=== PATIENT | female | born 1925 | race Caucasian/White ===

== ENCOUNTER → 2016-07-04 | Outpatient (REF) | payer MEDICARE, MEDICAID ==
[~2016-07-04] MED LIST: BUSP10TA PO; CLAR10CA3 PO; FLAG500T PO; FLON0.054; HYDR10T PO; LASI40TA PO; LEVO25TA5 PO; LIPI20TA PO; LISI-538 PO; LISI10TA4 PO; METF500T PO; MILKSUS PO; MYLI40DR PO; OMEP20CA3 PO; PAME10CA PO; PATA0.2S OS; TYLE650T25 PO; VITA100041 PO; XARE10TA PO; ZANT1TAB PO; ZEST1TAB7 PO
[2016-07-04 09:47] LABS: MICROSCOPIC INDICATED? MAN YES (NO)
[2016-07-04 09:53] LABS: WBC, URINE NONE SEEN /hpf (0-3)
[2016-07-04 09:54] LABS: BACTERIA, URINE SMALL AMOUNT; HYALINE CAST, URINE 0-1 /lpf (0-1); MICROSCOPIC EXAM PERFORMED; RBC, URINE NONE SEEN /hpf (0-3); SQUAMOUS EPITHELIAL CELL URINE SMALL AMOUNT /hpf (SMALL AMT)
== END ==
PROVIDERS: ATTEND Nurse Practitioner Family
DX: R30.0 Dysuria (principal)

== ENCOUNTER 2016-07-19 21:34 | Emergency (ER) | payer MEDICARE, MEDICAID ==
--- NOTE | 2016-07-19 22:50 | REPUSA ---
CT of the cervical spine Clinical history: Pain. Trauma. Technique: Multiple axial CT images were obtained through the cervical spine without administration o f contrast. Coronal and sagittal 3-D reconstructed images were also obtained. Comparison: 08/21/2015. Findings: The cervical vertebral bodies are in satisfactory positioning and alignment. No fractures or dislocat ions are demonstrated. The odontoid process is intact, with surrounding osteophytic spurring is noted , but stable. Mild degenerative disc disease is appreciated at C6/C7. Intervertebral disc spaces are otherwise well-maintained. Severe diffuse facet arthropathy with sclerosis and overhanging osteophyte s are seen throughout the cervical spine. There is no evidence of facet subluxation. The neural rené en appear grossly patent. The cervical cranial junction is intact. The cervical spinal canal demonstr ates normal caliber and contour without evidence of spinal stenosis. The surrounding soft tissues are within normal limits. Impression: 1. No acute fracture or osseous abnormality. 2. Mild degenerative disc disease at C6/C7. 3. Extensive bilateral facet arthropathy without evidence of subluxation. These findings are grossly stable.
--- NOTE | 2016-07-19 22:50 | REPUSA ---
CT of the head Clinical history: Headache. Trauma. Protocol: Multiple axial CT images obtained with 5 mm slice thickness were obtained through the head without administration of contrast. Findings: The ventricles and sulci are symmetric but prominent in size bilaterally. There are periven tricular areas of low attenuation throughout the deep white matter. There is no evidence of acute hem orrhage or infarct. There is no midline shift, mass effect, or extra-axial fluid collection. The osse ous structures are unremarkable. The visualized paranasal sinuses and mastoid air cells are clear. Impression: No acute hemorrhage or infarct. Findings are consistent with mild age-related atrophy and chronic small vessel ischemic disease.
--- NOTE | 2016-07-19 23:21 | EDDOCDS ---
Nurse's Notes [facility] Name: Luciana Sandhu Age: 89 yrs Sex: Female : 1925 Arrival Date: 07/19/2016 Time: 21:34 Bed 13 Private MD: Diagnosis: Fall from or off toilet Presentation: 07/19 22:40 Presenting complaint: EMS states: that the pt lives at [facility] and fell tonight ms18 in her bathroom from standing onto her bottom. [facility] states that the pt is more confused than normal. EMS checked BGL, 170 and noted a high BP. Pt denies any pain at this time. Adult Sepsis Screening: The patient does not have new or worsening altered mentation. Patient's respiratory rate is less than 22. Systolic blood pressure is greater than 100. Patient has a qSOFA score of 0- Negative Sepsis Screen. Suicide/Homicide risk assessment- the patient denies having any suicidal and/or homicidal ideations and does not present with any other emotional, behavioral or mental health complaints. Status: Patient is not a welfare service aide or dependent. Transition of care: patient was received from [facility]. Care prior to arrival: See EMS report. Glucose check. 170. 22:40 Acuity: JI Level 3 ms18 22:40 Method Of Arrival: Ambulance ms18 Triage Assessment: 22:52 General: Appears in no apparent distress, comfortable, Behavior is appropriate for age, ms18 cooperative. Pain: Denies pain. Neurological: Level of Consciousness is awake, alert, obeys commands. Respiratory: No deficits noted. Derm: Skin is pink, warm & dry. Musculoskeletal: cervical spine is non-tender. Circulation, motion, and sensation intact Capillary refill < 3 seconds Range of motion intact in all extremities. No deformity noted Swelling absent. Historical: - Allergies: PENICILLINS; - Home Meds: 1. Synthroid 75 mcg Oral tab 1 tab once daily 2. nortriptyline 10 mg Oral cap 1 caps daily 3. Remeron 15 mg Oral tab 1 tab once daily 4. Xarelto 15 mg oral tab 1 tab daily 5. Januvia 100 mg oral tab 1 tab once daily 6. metformin 500 mg Oral Tb24 2 tabs 2 times per day 7. Refresh Tears 0.5 % ophthalmic drop daily 8. Milk of Magnesia 400 mg/5 mL Oral susp 30 mL daily 9. Patanol 0.1 % Opht drop 1 drop 2 times per day both eyes 10. Lipitor 20 mg Oral tab 1 tab once daily 11. Vitamin D3 1,000 unit oral tab daily 12. Tylenol Extra Strength 650mg oral 1 cap as needed 13. omeprazole 20 mg Oral cpDR 1 cap once daily 14. 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 No barriers to communication noted, The patient speaks fluent Nigerien. - Family history: Not pertinent. - : The pt / caregiver states he / she is on anticoagulants: Xarelto Home medication list is obtained from [employer] import data, the facility [facility]. - Exposure Risk Screening:: None identified. Screenin:55 Screening information is obtained from the patient. Fall risk: At risk due to age, ms18 prior history of falls. Assistance ADL's: Requires assistance with. Abuse/DV Screen: The patient / caregiver reports he/she is: not in a situation that causes fear, pain or injury. Nutritional screening: No deficits noted. Advance Directives: There is an active DNR order and the pt has a copy here at this time. home support is adequate. Assessment: 22:55 General: Appears in no apparent distress, comfortable, Behavior is appropriate for age, ms18 cooperative. Pain: Denies pain. Neurological: Level of Consciousness is awake, alert, obeys commands, Moves all extremities. Speech is normal. Respiratory: Airway is patent Respiratory effort is even, unlabored. Derm: Skin is pink, warm & dry. Vital Signs: 21:59 Pulse 80 MON; Pulse Ox 98% ; ms18 22:00 Pulse 78 MON; Pulse Ox 97% ; ms18 22:04 BP 184 / 81; Pulse 80; Resp 20; Temp 96.6(O); Pulse Ox 98% on R/A; Pain 6/10; kb5 22:12 Pulse 80 MON; ms18 22:12 BP 174 / 77 (auto/); ms18 22:27 BP 158 / 71 (auto/); ms18 22:42 BP 192 / 79 (auto/); ms18 22:42 Pulse 76 MON; Pulse Ox 97% ; ms18 22:57 BP 174 / 74 (auto/); Pulse 75; Resp 18; Temp 98; Pulse Ox 98% ; ms18 Vitals: 22:52 Log In Time N/A - ambulance arrival. ms18 ED Course: 21:37 Patient visited by Solange Crum, Art Psychotherapist. ml3 21:37 Patient moved to Waiting ml3 22:03 Olive Hampton RN is Primary Nurse. ml3 22:03 Patient moved to 13 ml3 22:05 Patient visited by Guille Zuluaga PCA. kb5 22:05 Jovanny Lundy DO is Attending Physician. cs11 22:05 Patient visited by Jovanny Lundy DO. cs11 22:38 Patient visited by Olive Hampton RN. ms18 22:46 Triage Initiated ms18 22:55 The patient / caregiver is instructed regarding the plan of care and ED course. Patient ms18 has correct armband on for positive identification. Placed in gown. Bed in low position. Call light in reach. Side rails up X2. store protection specialist on. Pulse ox on. NIBP on. Property sent home with patient. :Personal belongings accompany Pt. 22:55 No IV's were initiated during this patient's visit. No procedures done that require ms18 assistance. Order Results: There are currently no results for this order. Outcome: 22:55 Discharge Assessment: patient administered narcotics - no. The following High Risk ms18 Discharge criteria are identified: None. Condition: good Condition: stable. CT Study completed. 22:57 Discharge ordered by Provider. cs11 23:00 Discharged to prison. Report called to charlette Pratt Yakum Rn. ms18 Discharge instructions given to prison, Instructed on discharge instructions, follow up and referral plans. 23:19 Patient left the ED. ms18 Signatures: Solange Crum, Art Psychotherapist Unit 3 Guille Zuluaga PCA SUPERVISOR RIDE ASSEMBLY kb5 Jovanny Lundy DO DO cs11 Olive Hampton RN RN ms18 Corrections: (The following items were deleted from the chart) 23:05 22:57 BP 174 / 74 Auto; Pulse 75bpm; Resp 18bpm; Pulse Ox 98%; ms18 ms18 MTDD
--- NOTE | 2016-07-19 23:21 | EDDOCDS ---
Physician Documentation [facility] Name: Luciana Sandhu Age: 89 yrs Sex: Female : 1925 Arrival Date: 07/19/2016 Time: 21:34 Bed 13 Private MD: Disposition: 07/19/16 22:57 Discharged to Home/Self Care. Impression: Fall from or off toilet. - Condition is Stable. - Medication Reconciliation, Local Pharmacy Hours form. - Follow up: Private Physician; When: Call to arrange an appointment; Reason: Recheck today's complaints. - Problem is new. - Symptoms are unchanged. Historical: - Allergies: PENICILLINS; - Home Meds: 1. Synthroid 75 mcg Oral tab 1 tab once daily 2. nortriptyline 10 mg Oral cap 1 caps daily 3. Remeron 15 mg Oral tab 1 tab once daily 4. Xarelto 15 mg oral tab 1 tab daily 5. Januvia 100 mg oral tab 1 tab once daily 6. metformin 500 mg Oral Tb24 2 tabs 2 times per day 7. Refresh Tears 0.5 % ophthalmic drop daily 8. Milk of Magnesia 400 mg/5 mL Oral susp 30 mL daily 9. Patanol 0.1 % Opht drop 1 drop 2 times per day both eyes 10. Lipitor 20 mg Oral tab 1 tab once daily 11. Vitamin D3 1,000 unit oral tab daily 12. Tylenol Extra Strength 650mg oral 1 cap as needed 13. omeprazole 20 mg Oral cpDR 1 cap once daily 14. 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 No barriers to communication noted, The patient speaks fluent Hong Konger. - Family history: Not pertinent. - : The pt / caregiver states he / she is on anticoagulants: Xarelto Home medication list is obtained from [employer] import data, the facility [facility]. - Exposure Risk Screening:: None identified. Vital Signs: 07/19 21:59 Pulse 80 MON; Pulse Ox 98% ; ms18 22:00 Pulse 78 MON; Pulse Ox 97% ; ms18 22:04 BP 184 / 81; Pulse 80; Resp 20; Temp 96.6(O); Pulse Ox 98% on R/A; Pain 6/10; kb5 22:12 Pulse 80 MON; ms18 22:12 BP 174 / 77 (auto/); ms18 22:27 BP 158 / 71 (auto/); ms18 22:42 BP 192 / 79 (auto/); ms18 22:42 Pulse 76 MON; Pulse Ox 97% ; ms18 22:57 BP 174 / 74 (auto/); Pulse 75; Resp 18; Temp 98; Pulse Ox 98% ; ms18 MDM: 22:13 CT Head Without Contrast Ordered. EDMS 22:14 CT Spine,Cervical W/o Contrast Ordered. EDMS Signatures: Dispatcher [employer] EDMS Jovanny Lundy DO DO cs11 Olive Hampton,RN RN ms18 MTDD
--- NOTE | 2016-07-22 00:21 | EDDOCDS ---
Nurse's Notes [facility] Name: Luciana Sandhu Age: 89 yrs Sex: Female : 1925 Arrival Date: 07/19/2016 Time: 21:34 Bed 13 Private MD: Diagnosis: Fall from or off toilet Presentation: 07/19 22:40 Presenting complaint: EMS states: that the pt lives at [facility] and fell tonight ms18 in her bathroom from standing onto her bottom. [facility] states that the pt is more confused than normal. EMS checked BGL, 170 and noted a high BP. Pt denies any pain at this time. Adult Sepsis Screening: The patient does not have new or worsening altered mentation. Patient's respiratory rate is less than 22. Systolic blood pressure is greater than 100. Patient has a qSOFA score of 0- Negative Sepsis Screen. Suicide/Homicide risk assessment- the patient denies having any suicidal and/or homicidal ideations and does not present with any other emotional, behavioral or mental health complaints. Status: Patient is not a flight line service attendant or dependent. Transition of care: patient was received from [facility]. Care prior to arrival: See EMS report. Glucose check. 170. 22:40 Acuity: JI Level 3 ms18 22:40 Method Of Arrival: Ambulance ms18 Triage Assessment: 22:52 General: Appears in no apparent distress, comfortable, Behavior is appropriate for age, ms18 cooperative. Pain: Denies pain. Neurological: Level of Consciousness is awake, alert, obeys commands. Respiratory: No deficits noted. Derm: Skin is pink, warm & dry. Musculoskeletal: cervical spine is non-tender. Circulation, motion, and sensation intact Capillary refill < 3 seconds Range of motion intact in all extremities. No deformity noted Swelling absent. Historical: - Allergies: PENICILLINS; - Home Meds: 1. Synthroid 75 mcg Oral tab 1 tab once daily 2. nortriptyline 10 mg Oral cap 1 caps daily 3. Remeron 15 mg Oral tab 1 tab once daily 4. Xarelto 15 mg oral tab 1 tab daily 5. Januvia 100 mg oral tab 1 tab once daily 6. metformin 500 mg Oral Tb24 2 tabs 2 times per day 7. Refresh Tears 0.5 % ophthalmic drop daily 8. Milk of Magnesia 400 mg/5 mL Oral susp 30 mL daily 9. Patanol 0.1 % Opht drop 1 drop 2 times per day both eyes 10. Lipitor 20 mg Oral tab 1 tab once daily 11. Vitamin D3 1,000 unit oral tab daily 12. Tylenol Extra Strength 650mg oral 1 cap as needed 13. omeprazole 20 mg Oral cpDR 1 cap once daily 14. 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 No barriers to communication noted, The patient speaks fluent [place]. - Family history: Not pertinent. - : The pt / caregiver states he / she is on anticoagulants: Xarelto Home medication list is obtained from [employer] import data, the facility [facility]. - Exposure Risk Screening:: None identified. Screenin:55 Screening information is obtained from the patient. Fall risk: At risk due to age, ms18 prior history of falls. Assistance ADL's: Requires assistance with. Abuse/DV Screen: The patient / caregiver reports he/she is: not in a situation that causes fear, pain or injury. Nutritional screening: No deficits noted. Advance Directives: There is an active DNR order and the pt has a copy here at this time. home support is adequate. Assessment: 22:55 General: Appears in no apparent distress, comfortable, Behavior is appropriate for age, ms18 cooperative. Pain: Denies pain. Neurological: Level of Consciousness is awake, alert, obeys commands, Moves all extremities. Speech is normal. Respiratory: Airway is patent Respiratory effort is even, unlabored. Derm: Skin is pink, warm & dry. Vital Signs: 21:59 Pulse 80 MON; Pulse Ox 98% ; ms18 22:00 Pulse 78 MON; Pulse Ox 97% ; ms18 22:04 BP 184 / 81; Pulse 80; Resp 20; Temp 96.6(O); Pulse Ox 98% on R/A; Pain 6/10; kb5 22:12 Pulse 80 MON; ms18 22:12 BP 174 / 77 (auto/); ms18 22:27 BP 158 / 71 (auto/); ms18 22:42 BP 192 / 79 (auto/); ms18 22:42 Pulse 76 MON; Pulse Ox 97% ; ms18 22:57 BP 174 / 74 (auto/); Pulse 75; Resp 18; Temp 98; Pulse Ox 98% ; ms18 Vitals: 22:52 Log In Time N/A - ambulance arrival. ms18 ED Course: 21:37 Patient visited by Solange Crum, Blindstitch Machine Operator. ml3 21:37 Patient moved to Waiting ml3 22:03 Olive Hampton RN is Primary Nurse. ml3 22:03 Patient moved to 13 ml3 22:05 Patient visited by Guille Zuluaga PCA. kb5 22:05 Jovanny Lundy DO is Attending Physician. cs11 22:05 Patient visited by Jovanny Lundy DO. cs11 22:38 Patient visited by Olive Hampton RN. ms18 22:46 Triage Initiated ms18 22:55 The patient / caregiver is instructed regarding the plan of care and ED course. Patient ms18 has correct armband on for positive identification. Placed in gown. Bed in low position. Call light in reach. Side rails up X2. cardiac monitor technician on. Pulse ox on. NIBP on. Property sent home with patient. :Personal belongings accompany Pt. 22:55 No IV's were initiated during this patient's visit. No procedures done that require ms18 assistance. 23:25 Primary Nurse role handed off by Olive Hampton RN ms18 23:41 CT Head Without Contrast Returned. EDMS 23:41 CT Spine,Cervical W/o Contrast Returned. EDMS 07/20 10:59 T-Sheet-- Draft Copy was scanned into [employer] and attached to record. gb 10:59 PCR was scanned into [employer] and attached to record. gb 15:13 PCR was scanned into [employer] and attached to record. gb 07/21 14:11 Radiology Report was scanned into [employer] and attached to record. gb Order Results: Radiology Order: CT Head Without Contrast Test: CT Head Without Contrast REASON FOR EXAMINATION: Trauma; ; CT of the head; Clinical history: Headache. Trauma.; Protocol: Multiple axial CT images obtained with 5 mm slice thickness were obtained through the head; without administration of contrast.; Findings: The ventricles and sulci are symmetric but prominent in size bilaterally. There are periven; tricular areas of low attenuation throughout the deep white matter. There is no evidence of acute hem; orrhage or infarct. There is no midline shift, mass effect, or extra-axial fluid collection. The osse; ous structures are unremarkable. The visualized paranasal sinuses and mastoid air cells are clear.; Impression: No acute hemorrhage or infarct. Findings are consistent with mild age-related atrophy and; chronic small vessel ischemic disease.; ; Radiology Order: CT Spine,Cervical W/o Contrast Test: CT Spine,Cervical W/o Contrast REASON FOR EXAMINATION: Trauma; ; CT of the cervical spine; Clinical history: Pain. Trauma.; Technique: Multiple axial CT images were obtained through the cervical spine without administration o; f contrast. Coronal and sagittal 3-D reconstructed images were also obtained.; Comparison: 08/21/2015.; Findings:; The cervical vertebral bodies are in satisfactory positioning and alignment. No fractures or dislocat; ions are demonstrated. The odontoid process is intact, with surrounding osteophytic spurring is noted; , but stable. Mild degenerative disc disease is appreciated at C6/C7. Intervertebral disc spaces are; otherwise well-maintained. Severe diffuse facet arthropathy with sclerosis and overhanging osteophyte; s are seen throughout the cervical spine. There is no evidence of facet subluxation. The neural rené; en appear grossly patent. The cervical cranial junction is intact. The cervical spinal canal demonstr; ates normal caliber and contour without evidence of spinal stenosis. The surrounding soft tissues are; within normal limits.; Impression:; 1. No acute fracture or osseous abnormality.; 2. Mild degenerative disc disease at C6/C7.; 3. Extensive bilateral facet arthropathy without evidence of subluxation. These findings are grossly; stable.; ; Outcome: 07/19 22:55 Discharge Assessment: patient administered narcotics - no. The following High Risk ms18 Discharge criteria are identified: None. Condition: good Condition: stable. CT Study completed. 22:57 Discharge ordered by Provider. cs11 23:00 Discharged to assisted. Report called to [place] Rn. ms18 Discharge instructions given to assisted, Instructed on discharge instructions, follow up and referral plans. 23:19 Patient left the ED. ms18 Signatures: Dispatcher [employer] EDMS Shyann Mcdonald, Reg Reg gb Skyla, Solange, Blindstitch Machine Operator Unit ml3 Guille Zuluaga, BI DATA ARCHITECT BI DATA ARCHITECT kb5 Jovanny Lundy, DO DO cs11 Olive Hampton,RN RN ms18 Corrections: (The following items were deleted from the chart) 23:05 22:57 BP 174 / 74 Auto; Pulse 75bpm; Resp 18bpm; Pulse Ox 98%; ms18 ms18 Chart Complete MTDD
--- NOTE | 2016-07-22 00:21 | EDDOCDS ---
Physician Documentation [facility] Name: Luciana Sandhu Age: 89 yrs Sex: Female : 1925 Arrival Date: 07/19/2016 Time: 21:34 Bed 13 Private MD: Disposition: 07/19/16 22:57 Discharged to Home/Self Care. Impression: Fall from or off toilet. - Condition is Stable. - Medication Reconciliation, Local Pharmacy Hours form. - Follow up: Private Physician; When: Call to arrange an appointment; Reason: Recheck today's complaints. - Problem is new. - Symptoms are unchanged. Historical: - Allergies: PENICILLINS; - Home Meds: 1. Synthroid 75 mcg Oral tab 1 tab once daily 2. nortriptyline 10 mg Oral cap 1 caps daily 3. Remeron 15 mg Oral tab 1 tab once daily 4. Xarelto 15 mg oral tab 1 tab daily 5. Januvia 100 mg oral tab 1 tab once daily 6. metformin 500 mg Oral Tb24 2 tabs 2 times per day 7. Refresh Tears 0.5 % ophthalmic drop daily 8. Milk of Magnesia 400 mg/5 mL Oral susp 30 mL daily 9. Patanol 0.1 % Opht drop 1 drop 2 times per day both eyes 10. Lipitor 20 mg Oral tab 1 tab once daily 11. Vitamin D3 1,000 unit oral tab daily 12. Tylenol Extra Strength 650mg oral 1 cap as needed 13. omeprazole 20 mg Oral cpDR 1 cap once daily 14. 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 No barriers to communication noted, The patient speaks fluent Gabonese. - Family history: Not pertinent. - : The pt / caregiver states he / she is on anticoagulants: Xarelto Home medication list is obtained from [employer] import data, the facility [facility]. - Exposure Risk Screening:: None identified. Vital Signs: 07/19 21:59 Pulse 80 MON; Pulse Ox 98% ; ms18 22:00 Pulse 78 MON; Pulse Ox 97% ; ms18 22:04 BP 184 / 81; Pulse 80; Resp 20; Temp 96.6(O); Pulse Ox 98% on R/A; Pain 6/10; kb5 22:12 Pulse 80 MON; ms18 22:12 BP 174 / 77 (auto/); ms18 22:27 BP 158 / 71 (auto/); ms18 22:42 BP 192 / 79 (auto/); ms18 22:42 Pulse 76 MON; Pulse Ox 97% ; ms18 22:57 BP 174 / 74 (auto/); Pulse 75; Resp 18; Temp 98; Pulse Ox 98% ; ms18 MDM: 22:13 CT Head Without Contrast Ordered. EDMS 22:14 CT Spine,Cervical W/o Contrast Ordered. EDMS 07/20 10:59 T-Sheet-- Draft Copy was scanned into [employer] and attached to record. gb :59 PCR was scanned into [employer] and attached to record. gb 15:13 PCR was scanned into [employer] and attached to record. gb 07/21 14:11 Radiology Report was scanned into [employer] and attached to record. gb Signatures: Dispatcher [employer] EDMS Shyann Mcdonald, Reg Reg gb Jovanny Lundy, DO DO cs11 Olive Hampton,RN RN ms18 The chart was reviewed and I authenticate all verbal orders and agree with the evaluation and treatment provided.Attachments: 07/20 10:59 T-Sheet-- Draft Copy gb Chart Complete MTDD
--- NOTE | 2016-07-22 00:21 | EDDOCDS ---
Physician Documentation [facility] Name: Luciana Sandhu Age: 89 yrs Sex: Female : 1925 Arrival Date: 07/19/2016 Time: 21:34 Bed 13 Private MD: Disposition: 07/19/16 22:57 Discharged to Home/Self Care. Impression: Fall from or off toilet. - Condition is Stable. - Medication Reconciliation, Local Pharmacy Hours form. - Follow up: Private Physician; When: Call to arrange an appointment; Reason: Recheck today's complaints. - Problem is new. - Symptoms are unchanged. Historical: - Allergies: PENICILLINS; - Home Meds: 1. Synthroid 75 mcg Oral tab 1 tab once daily 2. nortriptyline 10 mg Oral cap 1 caps daily 3. Remeron 15 mg Oral tab 1 tab once daily 4. Xarelto 15 mg oral tab 1 tab daily 5. Januvia 100 mg oral tab 1 tab once daily 6. metformin 500 mg Oral Tb24 2 tabs 2 times per day 7. Refresh Tears 0.5 % ophthalmic drop daily 8. Milk of Magnesia 400 mg/5 mL Oral susp 30 mL daily 9. Patanol 0.1 % Opht drop 1 drop 2 times per day both eyes 10. Lipitor 20 mg Oral tab 1 tab once daily 11. Vitamin D3 1,000 unit oral tab daily 12. Tylenol Extra Strength 650mg oral 1 cap as needed 13. omeprazole 20 mg Oral cpDR 1 cap once daily 14. 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 No barriers to communication noted, The patient speaks fluent [place]i. - Family history: Not pertinent. - : The pt / caregiver states he / she is on anticoagulants: Xarelto Home medication list is obtained from [employer] import data, the facility AUG. - Exposure Risk Screening:: None identified. Vital Signs: 07/19 21:59 Pulse 80 MON; Pulse Ox 98% ; ms18 22:00 Pulse 78 MON; Pulse Ox 97% ; ms18 22:04 BP 184 / 81; Pulse 80; Resp 20; Temp 96.6(O); Pulse Ox 98% on R/A; Pain 6/10; kb5 22:12 Pulse 80 MON; ms18 22:12 BP 174 / 77 (auto/); ms18 22:27 BP 158 / 71 (auto/); ms18 22:42 BP 192 / 79 (auto/); ms18 22:42 Pulse 76 MON; Pulse Ox 97% ; ms18 22:57 BP 174 / 74 (auto/); Pulse 75; Resp 18; Temp 98; Pulse Ox 98% ; ms18 MDM: 22:13 CT Head Without Contrast Ordered. EDMS 22:14 CT Spine,Cervical W/o Contrast Ordered. EDMS 07/20 10:59 T-Sheet-- Draft Copy was scanned into [employer] and attached to record. gb :59 PCR was scanned into [employer] and attached to record. gb 15:13 PCR was scanned into [employer] and attached to record. gb 07/21 14:11 Radiology Report was scanned into [employer] and attached to record. gb Signatures: Dispatcher [employer] EDMS Shyann Mcdonald, Reg Reg gb Jovanny Lundy, DO DO cs11 Olive Hampton,RN RN [id number] The chart was reviewed and I authenticate all verbal orders and agree with the evaluation and treatment provided.Attachments: 07/20 10:59 T-Sheet-- Draft Copy gb Chart Complete MTDD
== END 2016-07-19 23:19 | disposition home or self-care (01) ==
LOC: M ED 21:34
DX: Z04.3 Encounter for examination and observation following other accident (principal); W18.11XA Fall from or off toilet without subsequent striking against object, initial encounter; Y92.121 Bathroom in nursing home as the place of occurrence of the external cause; Y93.89 Activity, other specified; Y99.8 Other external cause status; E11.9 Type 2 diabetes mellitus without complications; N28.9 Disorder of kidney and ureter, unspecified; I10 Essential (primary) hypertension; E78.5 Hyperlipidemia, unspecified; K21.9 Gastro-esophageal reflux disease without esophagitis; E03.9 Hypothyroidism, unspecified; I48.91 Unspecified atrial fibrillation; F03.90 Unspecified dementia, unspecified severity, without behavioral disturbance, psychotic disturbance, mood disturbance, and anxiety; Z88.0 Allergy status to penicillin; Z79.899 Other long term (current) drug therapy; Z79.01 Long term (current) use of anticoagulants; Z79.84 Long term (current) use of oral hypoglycemic drugs

== ENCOUNTER → 2016-08-02 | Outpatient (REF) | payer MEDICARE, MEDICAID ==
[2016-08-02 12:42] LABS: CALCIUM LEVEL 8.8 MG/DL (8.8-10.2); CREATININE FOR GFR 1.05 MG/DL (0.55-1.02); GLOMERULAR FILTRATION RATE 52.5 (>32); POTASSIUM SERUM 4.6 MEQ/L (3.5-5.1)
== END ==
PROVIDERS: ATTEND Nurse Practitioner Adult Health
DX: I12.9 Hypertensive chronic kidney disease with stage 1 through stage 4 chronic kidney disease, or unspecified chronic kidney disease (principal)

== ENCOUNTER 2016-11-04 21:51 | Emergency (ER) | payer MEDICARE, MEDICAID ==
[~2016-11-04] VITALS: Ht 170.2 cm; Wt 84.8 kg
--- NOTE | 2016-11-05 00:20 | REPUSA ---
CLINICAL HISTORY: Altered level of consciousness. TECHNIQUE: Multiple axial CT images were obtained through the brain without IV contrast material. COMMENTS: There is normal configuration of sella turcica. There are no intra or extra-axial collections. There is no mass effect or midline shift. There is no evidence of hematoma formation. No hydrocephalus is p resent. The ventricles are symmetrical. No abnormal calcifications are present. There is diffuse age-appropriate cerebellar and cerebral atrophy with proportionally dilated ventricl es and cortical sulci. There are bilateral periventricular and subcortical white matter hypolucencies compatible with mild c hronic microvascular disease. Otherwise, no significant focal abnormalities are seen either in the posterior fossa or supratentoria l compartment. IMPRESSION: 1. Age-appropriate cerebellar and cerebral atrophy. 2. Mild chronic microvascular disease. 3. No evidence of acute intracranial pathology. No change is noted since prior exam on 07/19/2016. Thank you for your kind referral of this patient.
[2016-11-05 00:33] LABS: BASO % 0.4 % (0.0-1.0); EOS # 0.3 K/mm3 (0.0-0.50); EOS % 4.2 % (0.0-3.0); LARGE UNSTAINED CELL # 0.2 K/mm3 (0.0-0.4); LARGE UNSTAINED CELL % 2.7 % (0.0-4.0); LYMPH # 2.5 K/mm3 (1.5-4.5); LYMPH % 39.6 % (24.0-44.0); MEAN CORPUSCULAR HEMOGLOBIN 28.5 pg (27.0-33.0); MEAN CORPUSCULAR HGB CONC 33.1 g/dl (32.0-36.5); MEAN CORPUSCULAR VOLUME 86.2 fl (80.0-96.0); MONO # 0.4 K/mm3 (0.0-0.8); MONO % 5.6 % (0.0-5.0); NEUTROPHILS % 47.5 % (36.0-66.0); PLATELET COUNT, AUTOMATED 216 k/mm3 (150-450); RED CELL DISTRIBUTION WIDTH 13.8 % (11.5-14.5); WHITE BLOOD COUNT 6.3 K/mm3 (4.0-10.0)
[2016-11-05 01:08] LABS: ALBUMIN 3.2 GM/DL (3.2-5.2); ALBUMIN/GLOBULIN RATIO 0.84 (1.00-1.93); ALKALINE PHOSPHATASE 80 U/L (45-117); ALT/SGPT 25 U/L (12-78); ANION GAP 7 MEQ/L (8-16); AST/SGOT 16 U/L (15-37); BILIRUBIN,DIRECT < 0.1 MG/DL (0.0-0.2); BILIRUBIN,TOTAL 0.4 MG/DL (0.2-1.0); BLOOD UREA NITROGEN 27 MG/DL (7-18); CALCIUM LEVEL 8.9 MG/DL (8.8-10.2); CARBON DIOXIDE LEVEL 27 MEQ/L (21-32); CHLORIDE LEVEL 111 MEQ/L (98-107); GLOMERULAR FILTRATION RATE 49.8 (>32); GLUCOSE, FASTING 111 MG/DL (83-110); POTASSIUM SERUM 4.3 MEQ/L (3.5-5.1); SODIUM LEVEL 145 MEQ/L (136-145); T UPTAKE 35 % (30-39); THYROXINE (T4) 8.2 UG/DL (4.5-12.0)
[2016-11-05] MEDS ORDERED: CIPR500T89 PO (02:43)
[2016-11-05] MEDS ORDERED: CIPROFLOXACIN 500 MG TAB PO ONE (02:45)
[2016-11-05 03:00] VITALS: BP 130/61
--- NOTE | 2016-11-05 08:18 | REP ---
CHEST, ONE VIEW: HISTORY: Cough. COMPARISON: 02/21/2015 A minimal increase in interstitial markings is present in the lungs, consistent with chronic interstitial fibrosis. The heart is upper limits of normal in size. The pulmonary vasculature is normal in appearance. IMPRESSION: Chronic interstitial fibrosis. Signed by Ceasar Galdamez MD 11/05/2016 09:02 A
== END 2016-11-05 03:45 | disposition home or self-care (01) ==
LOC: EDBD 21:51 → M ED 23:13
DX: N39.0 Urinary tract infection, site not specified (principal)

== ENCOUNTER → 2016-11-10 | Outpatient (REF) | payer MEDICARE, MEDICAID ==
[~2016-11-10] MED LIST changes: +ACE65ERTAB PO; +ACET50TAOT PO; +BENCRE EX; +CELE10TA PO; +CIPR500T89 PO; +CLON0.5T PO; +GUAI1TAB PO; +LEVO75TA4 PO; +OLOP1OPD OU; +PREPCRE PR; +REFRSOL OU; +REME15TA PO; +SERO1TAB3 PO; +SITA50TAB PO; +VITA100066 PO; +XARE15TA PO
== END ==
LOC: M LAB REF 16:19
PROVIDERS: ATTEND Nurse Practitioner Adult Health
DX: N39.0 Urinary tract infection, site not specified (principal)

== ENCOUNTER → 2016-11-23 | Outpatient (REF) | payer MEDICARE, MEDICAID ==
[2016-11-23 19:50] LABS: PERCENT SATURATION 13.4 % (13.2-37.4)
== END ==
LOC: M LAB REF 17:13
PROVIDERS: ATTEND Nurse Practitioner Adult Health
DX: D50.9 Iron deficiency anemia, unspecified (principal)

== ENCOUNTER → 2016-12-08 | Outpatient (CLI) | payer MEDICARE, MEDICAID ==
[~2016-12-08] MED LIST changes: -BENCRE EX; +BENCRE3 EX; +CIPR-249 PO; -CIPR500T89 PO; +E-Z-PAQUE 96% w/w SUSP 176GM BTL As Ordered ONE; +HYDR-643 PO; -HYDR10T PO; -METF500T PO; +METF500T13 PO; +MONT10TA2; +VALS1TAB46; +VARIBAR NECTAR 40% w/v 240ML SUSP BTL As Ordered ONE; +VARIBAR PUDDING 40% w/v 230ML TUBE As Ordered ONE; +VITA-182 PO; -VITA100041 PO
--- NOTE | 2016-12-08 11:48 | REP ---
Clinical: Dysphasia. Technique: Real time fluoroscopic evaluation in conjunction with speech pathology. Findings: Examination demonstrates normal deglutition and peristalsis through the oropharynx and visualized upper esophagus. No evidence for aspiration or laryngeal penetration. Surrounding soft tissues and osseous structures are normal. Total fluoroscopic time 1 minute 2 seconds . Impression: Normal modified barium swallow examination. Signed by Conner Everett MD 12/08/2016 11:40 A
== END ==
LOC: M ST 09:34
PROVIDERS: ATTEND Nurse Practitioner Adult Health
DX: R13.10 Dysphagia, unspecified (principal)
CPT/HCPCS: 74230; 92611; G8996; G8997; G8998

== ENCOUNTER 2017-01-19 23:54 | Emergency (ER) | payer MEDICARE, MEDICAID ==
[~2017-01-19] VITALS: Ht 172.7 cm; Wt 84.1 kg
[~2017-01-19 23:54] MED LIST changes: -E-Z-PAQUE 96% w/w SUSP 176GM BTL As Ordered ONE; -MONT10TA2; -VALS1TAB46; -VARIBAR NECTAR 40% w/v 240ML SUSP BTL As Ordered ONE; -VARIBAR PUDDING 40% w/v 230ML TUBE As Ordered ONE
[2017-01-20 01:19] LABS: BASO % 0.2 % (0.0-1.0); EOS # 0.3 K/mm3 (0.0-0.50); EOS % 4.2 % (0.0-3.0); LARGE UNSTAINED CELL # 0.2 K/mm3 (0.0-0.4); LARGE UNSTAINED CELL % 3.3 % (0.0-4.0); LYMPH # 2.3 K/mm3 (1.5-4.5); LYMPH % 34.9 % (24.0-44.0); MEAN CORPUSCULAR HEMOGLOBIN 29.4 pg (27.0-33.0); MEAN CORPUSCULAR HGB CONC 33.8 g/dl (32.0-36.5); MEAN CORPUSCULAR VOLUME 87.1 fl (80.0-96.0); MONO # 0.4 K/mm3 (0.0-0.8); MONO % 5.7 % (0.0-5.0); NEUTROPHILS # 3.4 K/mm3 (1.8-7.7); NEUTROPHILS % 51.7 % (36.0-66.0); PLATELET COUNT, AUTOMATED 203 k/mm3 (150-450); WHITE BLOOD COUNT 6.5 K/mm3 (4.0-10.0)
[2017-01-20 01:29] LABS: CALCIUM LEVEL 8.8 MG/DL (8.8-10.2); CREATININE FOR GFR 1.19 MG/DL (0.55-1.02); GLOMERULAR FILTRATION RATE 45.5 (>32); POTASSIUM SERUM 4.3 MEQ/L (3.5-5.1)
--- NOTE | 2017-01-20 02:40 | REPUSA ---
CLINICAL HISTORY: Syncope. TECHNIQUE: Multiple axial CT images were obtained through the brain without IV contrast material. COMMENTS: There is normal configuration of sella turcica. There are no intra or extra-axial collections. There is no mass effect or midline shift. There is no evidence of hematoma formation. No hydrocephalus is p resent. The ventricles are symmetrical. No abnormal calcifications are present. There is diffuse age-appropriate cerebellar and cerebral atrophy with proportionally dilated ventricl es and cortical sulci. There are bilateral periventricular and subcortical white matter hypolucencies compatible with mild c hronic microvascular disease. Otherwise, no significant focal abnormalities are seen either in the posterior fossa or supratentoria l compartment. IMPRESSION: 1. Age-appropriate cerebellar and cerebral atrophy. 2. Mild chronic microvascular disease. 3. No evidence of acute intracranial pathology. Thank you for your kind referral of this patient.
[2017-01-20 04:36] VITALS: BP 147/67
--- NOTE | 2017-01-20 08:50 | ECGEPIP ---
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
== END 2017-01-20 05:25 | disposition home or self-care (01) ==
LOC: EDBD 23:54 → M ED 23:54
DX: Z71.1 Person with feared health complaint in whom no diagnosis is made (principal); Z79.01 Long term (current) use of anticoagulants

== ENCOUNTER 2017-03-12 12:56 | Emergency (ER) | payer MEDICARE, MEDICAID ==
[~2017-03-12] VITALS: Ht 162.6 cm; Wt 88.2 kg
[2017-03-12] MEDS ORDERED: VALS1TAB46 (13:16)
[2017-03-12] MEDS ORDERED: MONT10TA2 (13:16)
[2017-03-12] MEDS ORDERED: NS 1,000 ML IV SCH (14:31)
[2017-03-12 15:13] LABS: BASO % 0.2 % (0.0-1.0); EOS # 0.2 10^3/uL (0.0-0.50); EOS % 2.4 % (0.0-3.0); IMMATURE GRANULOCYTE % 0.4 % (0-0); LYMPH # 2.2 10^3/uL (1.5-4.5); LYMPH % 26.1 % (24.0-44.0); MEAN CORPUSCULAR HEMOGLOBIN 27.9 pg (27.0-33.0); MEAN CORPUSCULAR HGB CONC 31.6 g/dl (32.0-36.5); MEAN CORPUSCULAR VOLUME 88.5 fl (80.0-96.0); MONO # 0.7 10^3/uL (0.0-0.8); NEUTROPHILS # 5.3 10^3/uL (1.8-7.7); NEUTROPHILS % 62.9 % (36.0-66.0); PLATELET COUNT, AUTOMATED 219 10^3/uL (150-450); RED CELL DISTRIBUTION WIDTH 14.9 % (11.5-14.5); WHITE BLOOD COUNT 8.5 10^3/uL (4.0-10.0)
[2017-03-12 15:17] LABS: ADD MANUAL DIFFER NO; ADD MORPHOLOGY? NO; DIFF SLIDE NUMBER 140
[2017-03-12 15:23] LABS: INR 1.07
[2017-03-12 15:36] LABS: ALBUMIN 3.2 GM/DL (3.2-5.2); ALBUMIN/GLOBULIN RATIO 0.84 (1.00-1.93); ALKALINE PHOSPHATASE 72 U/L (45-117); ALT/SGPT 30 U/L (12-78); AMYLASE 49 U/L (25-115); ANION GAP 7 MEQ/L (8-16); AST/SGOT 17 U/L (15-37); BILIRUBIN,DIRECT 0.2 MG/DL (0.0-0.2); BILIRUBIN,TOTAL 0.8 MG/DL (0.2-1.0); BLOOD UREA NITROGEN 26 MG/DL (7-18); CALCIUM LEVEL 8.8 MG/DL (8.8-10.2); CARBON DIOXIDE LEVEL 24 MEQ/L (21-32); CHLORIDE LEVEL 111 MEQ/L (98-107); CREATININE FOR GFR 1.17 MG/DL (0.55-1.02); GLOMERULAR FILTRATION RATE 46.4 (>32); GLUCOSE, FASTING 100 MG/DL (83-110); POTASSIUM SERUM 4.2 MEQ/L (3.5-5.1); SODIUM LEVEL 142 MEQ/L (136-145)
[2017-03-12] MEDS ORDERED: ISOVUE-370 76% 100ML VIAL (Q9967) As Ordered ONE (17:23)
--- NOTE | 2017-03-12 18:20 | REPUSA ---
CT of the chest Clinical statement: pneumonia, shortness of breath. Technique: Multiple axial CT images were obtained from the thoracic inlet through the upper abdomen a fter a bolus administration of nonionic intravenous contrast. Coronal and sagittal reconstructions we re also obtained. No comparison is available. Findings: The pulmonary arteries are well-opacified with contrast, with no intraluminal filling defec ts to suggest embolism. The thoracic aorta is unremarkable. Thyroid gland is within normal limits. Th ere is no thoracic lymphadenopathy. There is a moderate sized right lower lobe pleural effusion with right lower lobe atelectasis. There is also a small left lower lobe pleural effusion. There is a smal l focal infiltrate in the lateral right upper lobe. Limited imaging of the upper abdomen is unremarka ble. There are no suspicious osseous lesions. Impression: 1. No evidence of pulmonary embolism. 2. Small focal infiltrate in the lateral right upper lobe. 3. Moderate sized right lower lobe pleural effusion with adjacent atelectasis. 4. Small left lower lobe pleural effusion.
--- NOTE | 2017-03-12 18:20 | REPUSA ---
CT of the abdomen and pelvis with contrast Clinical statement: Pain. Technique: Multiple axial CT images were obtained from the base of the lungs through the floor of the pelvis utilizing 5 mm axial slices after administration of oral and nonionic intravenous contrast. C oronal and sagittal reconstructions were also obtained. No comparison is available. Findings: Abdomen: The liver, spleen, pancreas, kidneys, and adrenal glands are unremarkable. Several large gal lstones are seen within the gallbladder. There are no pericholecystic inflammatory changes or biliary ductal dilatation however. The aorta is within normal limits. There is no evidence of abdominal lymp hadenopathy or ascites. IVC filter is in place. There is a small umbilical hernia containing only ome ntal fat. Pelvis: The bowel is unremarkable, with no obstructive or inflammatory changes. There is diffuse sigm oid diverticulosis. The urinary bladder is within normal limits. The other pelvic structures appear g rossly intact. There is no evidence of pelvic lymphadenopathy or ascites. Bones: There are no suspicious osseous abnormalities seen. Impression: 1. Cholelithiasis without evidence of acute cholecystitis. 2. No obstructive or inflammatory bowel changes. Diffuse sigmoid diverticulosis. 3. Small umbilical hernia.
[2017-03-12 19:13] VITALS: BP 190/89
--- NOTE | 2017-03-13 07:40 | REP ---
REASON: Abdominal pain. There is interstitial fibrotic change status quo. There are chronic basilar changes. There is cardiomegaly. There is evidence of an acute patchy basilar opacity on the right. The interstitial markings are diffusely increased. IMPRESSION: 1. There is evidence of interstitial edema superimposed upon chronic fibrotic change. This needs to be correlated clinically. 2. There is a new patchy right lower lobe opacity with blunting of the right costophrenic angle and cardiophrenic angles suggesting right lower lobe pneumonia and a small right pleural effusion. This too needs to be correlated clinically. Signed by Tj Flores DO 03/13/2017 12:09 P
--- NOTE | 2017-03-13 09:02 | ECGEPIP ---
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
== END 2017-03-12 20:03 | disposition home or self-care (01) ==
LOC: EDBD 12:56 → M ED 12:56
DX: K29.00 Acute gastritis without bleeding (principal)
CPT/HCPCS: 71020; 71260; 74177; 80048; 80076; 81001; 82150; 82550; 82553; 83605; 83690; 84484; 85025; 85610; 85730; 86140; 87040; 87086; 93005; 93041; 99285; Q9967

== ENCOUNTER → 2017-03-22 | Outpatient (REF) | payer MEDICARE, MEDICAID ==
[~2017-03-22] MED LIST changes: +MONT10TA2; +VALS1TAB46
--- NOTE | 2017-03-22 13:50 | REP ---
Chest one-view HISTORY: Shortness of breath Comparison: 03/12/2017 An increase in interstitial markings is present in the lungs consistent with chronic interstitial fibrosis. Patchy density is present in the right upper lobe consistent with atelectasis or infiltrate. A small right pleural effusion is present. The cardiac silhouette is enlarged. The pulmonary vasculature is normal in appearance. Impression: 1. Chronic interstitial fibrosis. 2. Right upper lobe atelectasis or infiltrate. 3. Small right pleural effusion. 4. Cardiomegaly. Signed by Ceasar Galdamez MD 03/22/2017 01:41 P
== END ==
PROVIDERS: ATTEND Nurse Practitioner Family
DX: R06.02 Shortness of breath (principal)

== ENCOUNTER → 2017-04-11 | Outpatient (REF) | payer MEDICARE, MEDICAID ==
[2017-04-11 10:17] LABS: MEAN CORPUSCULAR HEMOGLOBIN 27.7 pg (27.0-33.0); MEAN CORPUSCULAR VOLUME 89.4 fl (80.0-96.0); PLATELET COUNT, AUTOMATED 182 10^3/uL (150-450); RED CELL DISTRIBUTION WIDTH 14.9 % (11.5-14.5); WHITE BLOOD COUNT 8.1 10^3/uL (4.0-10.0)
[2017-04-11 10:40] LABS: ALBUMIN 3.3 GM/DL (3.2-5.2); BILIRUBIN,TOTAL 0.7 MG/DL (0.2-1.0); CALCIUM LEVEL 8.7 MG/DL (8.8-10.2); CREATININE FOR GFR 1.41 MG/DL (0.55-1.02); GLOMERULAR FILTRATION RATE 37.4 (>32); MAGNESIUM LEVEL 2.1 MG/DL (1.8-2.4); POTASSIUM SERUM 4.6 MEQ/L (3.5-5.1); TOTAL PROTEIN 6.6 GM/DL (6.4-8.2)
== END ==
PROVIDERS: ATTEND Nurse Practitioner Family
DX: J90 Pleural effusion, not elsewhere classified (principal); I10 Essential (primary) hypertension; R51 Headache; R06.02 Shortness of breath

== ENCOUNTER → 2017-04-11 | Outpatient (REF) | payer MEDICARE, MEDICAID ==
--- NOTE | 2017-04-11 17:36 | REP ---
Chest x-ray: Single view. History: Follow-up chest x-ray. Pleural effusion. Comparison study March 22, 2017. Findings: Pulmonary vasculature remains cephalized and is congested. Today's AP radiograph is exposed at a lesser level of inspiration. Right hemidiaphragm is indistinct and there are increased markings in the right base. I cannot exclude a developing infiltrate in the right base. Interstitial markings are diffusely somewhat prominent. No definite effusion is seen. Heart size is unchanged and felt to be enlarged. Impression: Increased markings right base. Lesser level of inspiration. No definite effusion. Cannot exclude right base infiltrate. Signed by Carlton Hassan MD 04/12/2017 11:07 A
== END ==
PROVIDERS: ATTEND Nurse Practitioner Family
DX: J90 Pleural effusion, not elsewhere classified (principal)

== ENCOUNTER → 2017-04-19 | Outpatient (REF) | payer MEDICARE, MEDICAID ==
[2017-04-19 11:17] LABS: MEAN CORPUSCULAR HEMOGLOBIN 27.4 pg (27.0-33.0); MEAN CORPUSCULAR HGB CONC 30.6 g/dl (32.0-36.5); MEAN CORPUSCULAR VOLUME 89.5 fl (80.0-96.0); PLATELET COUNT, AUTOMATED 198 10^3/uL (150-450); RED CELL DISTRIBUTION WIDTH 15.1 % (11.5-14.5); WHITE BLOOD COUNT 8.9 10^3/uL (4.0-10.0)
[2017-04-19 11:49] LABS: ALBUMIN 3.4 GM/DL (3.2-5.2); ALBUMIN/GLOBULIN RATIO 0.94 (1.00-1.93); ALKALINE PHOSPHATASE 74 U/L (45-117); ALT/SGPT 28 U/L (12-78); ANION GAP 7 MEQ/L (8-16); AST/SGOT 19 U/L (7-37); BILIRUBIN,TOTAL 0.8 MG/DL (0.2-1.0); BLOOD UREA NITROGEN 33 MG/DL (7-18); CARBON DIOXIDE LEVEL 27 MEQ/L (21-32); CHLORIDE LEVEL 110 MEQ/L (98-107); CREATININE FOR GFR 1.41 MG/DL (0.55-1.02); GLOMERULAR FILTRATION RATE 37.4 (>32); GLUCOSE, FASTING 105 MG/DL (83-110); POTASSIUM SERUM 4.5 MEQ/L (3.5-5.1); SODIUM LEVEL 144 MEQ/L (136-145)
== END ==
DX: J90 Pleural effusion, not elsewhere classified (principal)
CPT/HCPCS: 80053

== ENCOUNTER 2017-04-25 15:56 | Emergency (ER) | payer MEDICARE, MEDICAID ==
[~2017-04-25] VITALS: Ht 172.7 cm; Wt 88.7 kg
[2017-04-25 16:44] LABS: BASO % 0.4 % (0.0-1.0); EOS # 0.4 10^3/uL (0.0-0.50); EOS % 4.3 % (0.0-3.0); IMMATURE GRANULOCYTE % 0.4 % (0-0); LYMPH # 1.5 10^3/uL (1.5-4.5); MEAN CORPUSCULAR HEMOGLOBIN 28.2 pg (27.0-33.0); MEAN CORPUSCULAR HGB CONC 31.9 g/dl (32.0-36.5); MEAN CORPUSCULAR VOLUME 88.3 fl (80.0-96.0); MONO # 0.7 10^3/uL (0.0-0.8); MONO % 8.1 % (0.0-5.0); NEUTROPHILS # 5.6 10^3/uL (1.8-7.7); NEUTROPHILS % 68.8 % (36.0-66.0); PLATELET COUNT, AUTOMATED 208 10^3/uL (150-450); RED CELL DISTRIBUTION WIDTH 15.1 % (11.5-14.5); WHITE BLOOD COUNT 8.1 10^3/uL (4.0-10.0)
[2017-04-25 17:09] LABS: ALBUMIN 3.3 GM/DL (3.2-5.2); BILIRUBIN,DIRECT 0.2 MG/DL (0.0-0.2); BILIRUBIN,TOTAL 0.6 MG/DL (0.2-1.0); CREATININE FOR GFR 1.42 MG/DL (0.55-1.02); GLOMERULAR FILTRATION RATE 37.1 (>32); POTASSIUM SERUM 4.6 MEQ/L (3.5-5.1); TOTAL PROTEIN 6.6 GM/DL (6.4-8.2)
--- NOTE | 2017-04-25 18:00 | REP ---
Chest x-ray: Two views. History: Dyspnea and cough. Comparison chest x-ray April 11, 2017 and March 22, 2017. Findings: Cardiomegaly is again observed. Pulmonary vascular congestion is seen. Diffuse interstitial edema pattern is noted. No free pleural effusion is seen. There is slight fissural thickening seen on the lateral radiograph today. There are degenerative changes in the thoracic spine. Impression: CHF pattern with cardiomegaly, vascular congestion and mild interstitial edema pattern. Signed by Carlton Hassan MD 04/25/2017 07:47 P
[2017-04-25] MEDS ORDERED: FUROSEMIDE 40 MG/4 ML VIAL (J1940) IV ONE (18:15)
[2017-04-25 19:28] VITALS: BP 140/77
--- NOTE | 2017-04-26 09:28 | ECGEPIP ---
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
== END 2017-04-25 19:45 | disposition home or self-care (01) ==
LOC: M ED 15:56 → EDBD 15:56 → M ED 19:45
DX: R06.02 Shortness of breath (principal); R01.1 Cardiac murmur, unspecified; I12.9 Hypertensive chronic kidney disease with stage 1 through stage 4 chronic kidney disease, or unspecified chronic kidney disease; E11.9 Type 2 diabetes mellitus without complications; E03.9 Hypothyroidism, unspecified; F41.9 Anxiety disorder, unspecified; F32.9 Major depressive disorder, single episode, unspecified; F03.90 Unspecified dementia, unspecified severity, without behavioral disturbance, psychotic disturbance, mood disturbance, and anxiety; N18.9 Chronic kidney disease, unspecified; K57.90 Diverticulosis of intestine, part unspecified, without perforation or abscess without bleeding; Z79.01 Long term (current) use of anticoagulants
CPT/HCPCS: 71020; 80048; 80076; 81001; 83605; 83880; 85025; 93005; 93041; 94760; 96374; 99285; J1940